=== PATIENT | female | born 1990 | race Hispanic/Latino ===

== ENCOUNTER 2018-06-23 09:03 | Emergency (ER) | payer OTHER ==
[~2018-06-23] VITALS: Ht 152.4 cm; Wt 87.5 kg
[~2018-06-23 09:03] MED LIST: ELIMITE5% TOP; MEDROL DOSEPAK1 PAC PO
[2018-06-23 09:23] VITALS: BP 172/80
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
[2018-06-23] MEDS ORDERED: CYCLOBENZAPRINE10 M1 PO (12:26)
[2018-06-23] MEDS ORDERED: IBUPROFEN800 M1 PO (12:26)
[2018-06-23] MEDS ORDERED: MIRENA1 EACH (12:33)
[2018-06-23] MEDS ORDERED: CLONAZEPAM0.5 M2 PO (12:33)
== END 2018-06-23 12:46 ==
LOC: ERH 09:03
DX: M54.2 Cervicalgia (principal)
CPT/HCPCS: 72110; 81025